=== PATIENT | male | born 1970 | race American Indian/Alaskan Native ===

== ENCOUNTER 2016-07-31 14:28 | Emergency (ER) | payer OTHER ==
[2016-07-31] MEDS ORDERED: APRESOLINE IV ONE (16:40)
--- NOTE | 2016-07-31 16:55 | Emergency Department Report ---
HPI - General Chief Complaint: High BP Time Seen by Provider: 07/31/16 16:16 - HPI HPI: 46-year-old male past medical history hypertension sent by primary doctor for elevated blood pressure in office today approximately 190/170 as per triage note. On exam patient is awake alert and oriented 3 denies any blurry vision no headache no nausea no vomiting no chest pain no palpitations no shortness of breath denies any paresthesias in upper or lower extremities denies any facial weakness no paresthesias denies any slurred speech. Denies history of [place] in mother or father. Patient states that he ran out of his lisinopril/ hydrochlorothiazide approximately 3 weeks ago went to his PMD today for refill on routine checkup was found to have high blood pressure and was sent here. Was given 0.1 clonidine and office today before being sent to the ED. Patient states he had a similar episode of elevated blood pressure 3 years ago for which he was hospitalized. ED Past Medical Hx - Past Medical History Hx Hypertension: Yes - Surgical History Past Surgical History?: No - Social History Smoking Status: Never Smoker Substance Use Type: None - Medications Home Medications: Home Medications Medication Instructions Recorded Confirmed Last Taken Type Lisinopril/Hydrochlorothiazide 1 tab PO QDAY #30 tab 07/31/16 Unknown Rx [Zestoretic 20-12.5 mg] ED Review of Systems ROS: Stated complaint: HYPERTENSION Other details as noted in HPI Constitutional: denies: chills, fever Eyes: denies: eye pain, eye discharge, vision change ENT: denies: ear pain, throat pain Respiratory: denies: cough, shortness of breath, wheezing Cardiovascular: denies: chest pain, palpitations Endocrine: no symptoms reported Gastrointestinal: denies: abdominal pain, nausea, diarrhea Genitourinary: denies: urgency, dysuria Musculoskeletal: denies: back pain, joint swelling, arthralgia Skin: denies: rash, lesions Neurological: denies: headache, weakness, paresthesias Psychiatric: denies: anxiety, depression Hematological/Lymphatic: denies: easy bleeding, easy bruising Physical Exam - Physical Exam Vital Signs: Vital Signs 07/31/16 07/31/16 14:54 16:38 Temperature 98.4 F 98.1 F Pulse Rate 54 L 58 L Respiratory 18 16 Rate Blood Pressure 157/116 Blood Pressure 186/132 [Left] O2 Sat by Pulse 100 99 Oximetry General: General: Well appearing, well nourished, in no distress. Oriented x 3, normal mood and affect . Ambulating without difficulty. HEENT: Head: Normocephalic, atraumatic, no visible or palpable masses, depressions, or scaring. Eyes: Visual acuity intact, conjunctiva clear, sclera non-icteric, EOM intact, PERRLA Ears: EACs clear, TMs translucent & mobile, ossicles nl appearance, hearing intact. Nose: No external lesions, mucosa non-inflamed, septum and turbinates normal Neck: Supple, without lesions, bruits, or adenopathy, thyroid non-enlarged and non-tender Heart: No cardiomegaly or thrills; regular rate and rhythm, no murmur or gallop Lungs: Clear to auscultation bilaterally Abdomen: Bowel sounds normal, no tenderness, organomegaly, masses, or hernia Back: Spine normal without deformity or tenderness, no CVA tenderness Musculoskeletal: Normal gait and station. No misalignment, asymmetry, crepitation, defects, tenderness, masses, effusions, decreased range of motion, instability, atrophy or abnormal strength or tone in the head, neck, spine, ribs , pelvis or extremities. Neurologic: CN 2-12 normal. Psychiatric: Oriented X3, intact recent and remote memory, judgment and insight , normal mood and affect. P ED Course Vital Signs 07/31/16 07/31/16 14:54 16:38 Temperature 98.4 F 98.1 F Pulse Rate 54 L 58 L Respiratory 18 16 Rate Blood Pressure 157/116 Blood Pressure 186/132 [Left] O2 Sat by Pulse 100 99 Oximetry ED Medical Decision Making - Lab Data Result diagrams: 07/31/16 17:33 07/31/16 17:33 - Medical Decision Making A/P: Hypertensive urgency 1-case discussed with Dr. Álvarez check BMP EKG UA we'll give patient run of IV hydralazine to see if this normalizes blood pressure blood pressure systolic is 180 diastolic 120-130 on my exam 2-will refill patient's lisinopril hydrochlorothiazide which she has not been taking 20-12.5mg. I empathized to pt the importance of taking his BP meds to mitigate any organ damage in thr [employer]. pt has PMD to f/u with tomorrow 3-Good pressure control achieved with only 1 dose of hydrazine, pt remains asymptomatic. 4-Case d/w Dr. Álvarez before discharge 5- labs, UA, CXR, EKG unremarkable Critical care attestation.: If time is entered above; I have spent that time in minutes in the direct care of this critically ill patient, excluding procedure time. ED Disposition Clinical Impression: Hypertension Qualifiers: Hypertension type: unspecified secondary hypertension Qualified Code(s): I15.9 - Secondary hypertension, unspecified; I15 - Secondary hypertension Disposition: DISCHARGED TO HOME OR SELFCARE Is pt being admited?: No Does the pt Need Aspirin: No Condition: Stable Instructions: Hypertension (ED), Low Sodium Diet (ED), Hypertensive Crisis (ED) Prescriptions: Lisinopril/Hydrochlorothiazide [Zestoretic 20-12.5 mg] 1 tab PO QDAY #30 tab Referrals: RICHARD CRISTINA MD [Primary Care Provider] - 3-5 Days JASPER NIX MD [Staff Physician] - 3-5 Days [facility] [Outside] - 3-5 Days Forms: Work/School Release Form(ED) Time of Disposition: 18:40
[2016-07-31 17:21] LABS: Bilirubin,Urine NEG (Negative); Blood,Urine NEG (Negative); Ketones,Urine NEG (Negative); Leukocyte Esterase,Urine NEG (Negative); Mucus,Urine 1+ /HPF; Nitrite,Urine NEG (Negative); Urobilinogen,Urine < 2.0 mg/dL (<2.0)
[2016-07-31 17:46] LABS: Hematocrit 46.9 % (35.5-45.6); Hemoglobin 15.5 gm/dl (11.8-15.2); Mean Corpuscular HGB Conc 33 % (32-34); Mean Corpuscular Hemoglobin 30 pg (28-32); Mean Corpuscular Volume 92 fl (84-94); Platelet Count 260 K/mm3 (140-440); Red Blood Count 5.13 M/mm3 (3.65-5.03); White Blood Count 4.4 K/mm3 (4.5-11.0)
[2016-07-31 18:02] LABS: BUN/Creatinine Ratio 19.16; Blood Urea Nitrogen 23 mg/dL (9-20); Carbon Dioxide 28 mmol/L (22-30); Chloride 97.9 mmol/L (98-107); Glucose 78 mg/dL (75-100); Sodium 138 mmol/L (137-145)
[2016-07-31 18:05] LABS: Alanine Aminotransferase 22 units/L (7-56); Albumin 3.9 g/dL (3.9-5); Albumin/Globulin Ratio 1.1 %; Alkaline Phosphatase 67 units/L (35-129); Bilirubin,Direct < 0.2 mg/dL (0-0.2); Bilirubin,Indirect 0.2 mg/dL; Bilirubin,Total 0.4 mg/dL (0.1-1.2); Total Protein 7.4 g/dL (6.3-8.2)
--- NOTE | 2016-07-31 18:13 | XRay Report ---
FINAL REPORT EXAM: XR CHEST ROUTINE 2V HISTORY: chest pressure TECHNIQUE: 2 view examination of the chest PRIORS: None FINDINGS: There is no pulmonary consolidation, pleural effusion, or pneumothorax. Cardiac silhouette size is normal without vascular congestion. The regional skeleton is without acute pathology. IMPRESSION: No evidence of acute cardiopulmonary disease
[2016-07-31 18:16] LABS: Anion Gap 16 mmol/L; Potassium 4.3 mmol/L (3.6-5.0)
[2016-07-31 18:22] LABS: Basophils % (Manual) 0 % (0.0-1.8); Blastocytes % (Manual) 0 %; Diff Status Complete; RBC Morphology Normal
[2016-07-31 18:55] VITALS: BP 152/101
== END 2016-07-31 18:55 | disposition home or self-care (01) ==
LOC: ED 14:28
DX: I10 Essential (primary) hypertension (principal)
CPT/HCPCS: 36415; 71020; 80048; 80074; 81001; 82553; 84484; 85007; 85025; 93005; 93010; 96374; 99284; J0360